=== PATIENT | female | born 1985 | race Caucasian/White ===

== ENCOUNTER 2017-02-23 09:04 | Emergency (ER) | payer OTHER ==
[2017-02-23 09:43] LABS: RED BLOOD COUNT 5.16 M/UL (4.00-5.10); WHITE BLOOD COUNT 5.8 K/UL (4.5-11.0)
[2017-02-23 10:15] LABS: BUN/CREATININE RATIO 12 (0-10)
== END 2017-02-23 14:08 | disposition home or self-care (01) ==
LOC: ER1 09:04
PROVIDERS: Emergency Medicine
DX: R10.9 Unspecified abdominal pain (principal); K59.00 Constipation, unspecified; Z79.899 Other long term (current) drug therapy
CPT/HCPCS: 36415; 80053; 81001; 83690; 84703; 85025; 96361; 96374; 99284; J2405; J7030; J7050; Q9962